=== PATIENT | male | born 1960 | race Asian ===

== ENCOUNTER 2016-12-29 11:04 | Day surgery (SDC) | payer OTHER ==
[2016-12-28 12:22] VITALS: BMI 38.3
[2016-12-29] MEDS ORDERED: LIDOCAINE HCL/PF 2% SDV 5ML VIAL ONE (12:09)
[2016-12-29] MEDS ORDERED: PROPOFOL 20 ML ONE ×2 (12:09)
[2016-12-29 12:49] VITALS: TEMP 98.7
[2016-12-29 13:40] VITALS: BP 149/81; PULSE 76
--- NOTE | 2016-12-30 14:26 | PATH ---
Surgical Pathology Report Patient Name: CHUCKY ROTHMAN [facility]. Rec. #: [id number] /Age/Gender: 1960 (Age: 56) / M Account: [id number] Location: [facility]-ENDOSCOPY Taken: 12/29/2016 Received: 12/29/2016 Reported: 12/30/2016 Physicians: Rip Diallo M.D. Specimen(s) Received A: BX EROSION ANTRUM B: BX IRREGULAR Z-LINE Clinical History GERD, gas pains, bloating Irregular Z-line, erosive gastritis Final Diagnosis A. STOMACH, ANTRUM, BIOPSY: GASTRIC ANTRAL MUCOSA WITH MILD CHRONIC GASTRITIS AND MILD REACTIVE GASTROPATHY WITH FOCAL SURFACE EROSION. IMMUNOSTAIN FOR H. PYLORI IS NEGATIVE FOR ORGANISMS. B. IRREGULAR Z-LINE, BIOPSY: SQUAMOCOLUMNAR JUNCTIONAL MUCOSA WITH CHRONIC INFLAMMATION AND INTESTINAL METAPLASIA (SEE COMMENT). NEGATIVE FOR DYSPLASIA. Comment: The findings are compatible with Junior's esophagus in proper endoscopic settings. Endoscopic correlations and followup are suggested. Electronically Signed Caleb Ball M.D. Gross Description A. Received in formalin, labeled "biopsy gastric antrum" is a shepard, irregular portion of soft tissue measuring 0.5 cm in greatest dimension. The specimen is submitted in toto in one cassette. B. Received in formalin, labeled "biopsy irregular Z-line" are 2 shepard, irregular portions of soft tissue averaging 0.3 cm in greatest dimension. The specimens are submitted in toto in one cassette. /12/29/201612/29/2016
== END 2016-12-29 13:40 | disposition home or self-care (01) ==
LOC: JASU-ENDO 11:04
PROVIDERS: ATTEND Internal Medicine Gastroenterology
PROC: 0DB68ZX Excision of Stomach, Via Natural or Artificial Opening Endoscopic, Diagnostic (ICD-10-PCS; 2016-12-29)
PROC: 0DB48ZX Excision of Esophagogastric Junction, Via Natural or Artificial Opening Endoscopic, Diagnostic (ICD-10-PCS; principal; 2016-12-29 11:30)
DX: K29.50 Unspecified chronic gastritis without bleeding (principal); K31.9 Disease of stomach and duodenum, unspecified; I10 Essential (primary) hypertension
CPT/HCPCS: 88305-TC; 88342-TC

== ENCOUNTER 2023-04-07 10:41 | Emergency (ER) | payer OTHER ==
[2023-04-07 10:46] VITALS: BP 138/83; PULSE 97; RESP 18; TEMP 97.3; BMI 34.0
[2023-04-07] MEDS ORDERED: KETOROLAC TROMETHAMINE 15 MG/ML VIAL IM ONE (11:48)
[2023-04-07] MEDS ORDERED: ACETAMINOPHEN 500 MG TABLET (FP) PO ONE (11:48)
[2023-04-07] MEDS ORDERED: METHOCARBAMOL 750 MG TABLET PO ONE (11:50)
[2023-04-07] MEDS ORDERED: METHOCARBAMOL 500 MG TABLET ONE (11:57)
[2023-04-07] MEDS ORDERED: ACETAMINOPHEN 500 MG TABLET (FP) ONE (11:57)
[2023-04-07] MEDS ORDERED: KETOROLAC TROMETHAMINE 15 MG/ML VIAL ONE (11:57)
== END 2023-04-07 14:04 | disposition home or self-care (01) ==
LOC: JERFT 10:41
PROC: 3E0233Z Introduction of Anti-inflammatory into Muscle, Percutaneous Approach (ICD-10-PCS; principal; 2023-04-07)
DX: M54.2 Cervicalgia (principal); M54.50 Low back pain, unspecified; M25.511 Pain in right shoulder; M25.512 Pain in left shoulder; M25.561 Pain in right knee; V49.09XA Driver injured in collision with other motor vehicles in nontraffic accident, initial encounter; Y92.481 Parking lot as the place of occurrence of the external cause
CPT/HCPCS: 72100-TC-FY; 72125-TC; 99285-25